=== PATIENT | male | born 1990 | race African-American/Black ===

== ENCOUNTER 2021-01-08 01:11 | Emergency (ER) | payer OTHER ==
[~2021-01-08] VITALS: Ht 185.4 cm; Wt 102.1 kg
[2021-01-08 01:45] VITALS: BP_SYST 135
[2021-01-08] MEDS ORDERED: ACETAMINOPHEN 500 MG TABLET PO ONE (03:00)
[2021-01-08] MEDS ORDERED: NAPR-1172 PO (05:17)
[2021-01-08] MEDS ORDERED: METH-364 PO (05:17)
[2021-01-08 05:30] VITALS: BP_SYST 133
== END 2021-01-08 05:30 | disposition home or self-care (01) ==
LOC: SED 01:11
DX: S16.1XXA Strain of muscle, fascia and tendon at neck level, initial encounter (principal); S00.83XA Contusion of other part of head, initial encounter; S06.0X0A Concussion without loss of consciousness, initial encounter; W51.XXXA Accidental striking against or bumped into by another person, initial encounter; Y93.9 Activity, unspecified; Y92.89 Other specified places as the place of occurrence of the external cause; Y99.0 Civilian activity done for income or pay
CPT/HCPCS: 70450-TC; 72040-TC; 76376; 99284